=== PATIENT | male | born 1985 | race African-American/Black ===

== ENCOUNTER 2018-07-16 10:37 | Emergency (ER) | payer OTHER ==
[2018-07-16 10:52] VITALS: BP 117/82
--- NOTE | 2018-07-16 11:54 | XRAY Report ---
Reason: pain swelling. injury 2 weeks ago Procedure Date: 07/16/2018 Accession Number: [id number] / [id number] Procedure: XR - Foot 3 View LT CPT Code: FULL RESULT: EXAM: LEFT FOOT RADIOGRAPHY EXAM DATE: 07/16/2018 11:19 AM. CLINICAL HISTORY: Foot pain and swelling post injury. COMPARISON: None. TECHNIQUE: 3 views. FINDINGS: Bones: Patient is status post resection of the tip of the distal phalanx of the second digit. No acute fracture noted. Joints: Normal. No subluxations. Soft Tissues: There is mild plantar soft tissue swelling, prominence at the forefoot. IMPRESSION: 1. Status post resection of tip of distal phalanx of the second digit without acute fracture. 2. Mild forefoot plantar soft tissue swelling. RADIA
--- NOTE | 2018-07-16 12:29 | ED Physician Documentation ---
PD HPI LOWER EXT INJURY - Stated complaint Stated Complaint: L FOOT PAIN - Chief complaint Chief Complaint: Trauma Ext - History obtained from History obtained from: Patient - History of Present Illness PD HPI LOW EXT INJURY LOCATION: Left, Foot Type of injury: Twist (He was playing basketball implanted onto the left foot and felt a pop or pull on the bottom of the foot. He is continued to heat hurt with walking since that time. It seemed to be improving some but then read turned to the same level over the last few days. He had not been doing any vigorous sports. He had not taken any medicine. He presumed it was sprain and would just improve but subsequently has not) Timing - onset: How many weeks ago (2) Timing - duration: Weeks (2) Timing - details: Abrupt onset, Still present Associated symptoms: Swelling (plantar area and with pain on walking and stretching of the bottom of the foot.). No: Weakness, Numbness Similar symptoms before: Has not had sx before Recently seen: Not recently seen, Other (has not taken any meds for it) Review of Systems Constitutional: denies: Fever Nose: denies: Rhinorrhea / runny nose, Congestion Throat: denies: Sore throat Respiratory: denies: Cough Skin: denies: Rash, Lesions PD PAST MEDICAL HISTORY - Past Medical History Musculoskeletal: None - Present Medications Home Medications: Ambulatory Orders Medication Instructions Recorded Confirmed Naproxen 500 mg PO BID #20 tablet 07/16/18 - Allergies Allergies/Adverse Reactions: Allergies Allergy/AdvReac Type Severity Reaction Status Date / Time No Known Drug Allergies Allergy Verified 07/16/18 10:52 PD ED PE NORMAL - Vitals Vital signs reviewed: Yes - General General: Alert and oriented X 3, No acute distress, Well developed/nourished - Derm Derm: Normal color, Warm and dry - Extremities Extremities: Other (plantar aspect cutting machine tender decorative proximal plantar without rash, sores, redness. ) - Neuro Neuro: Alert and oriented X 3, No motor deficit, No sensory deficit, Normal speech Results - Vitals Vitals: Oxygen O2 Source Room air - Rads (name of study) foot xray Radiology: Prelim report reviewed (normal), See rad report PD MEDICAL DECISION MAKING - ED course Complexity details: considered differential (tender proximal plantar soft tissue without skin sores, redness, warmth. Achilles not tender. ), d/w patient Departure - Departure Disposition: 01 Home, Self Care Clinical Impression: Plantar fasciitis of left foot Condition: Stable Record reviewed to determine appropriate education?: Yes Instructions: ED Plantar Fasciitis Follow-Up: NAKITA Adame [Provider Group] Prescriptions: Naproxen 500 mg PO BID #20 tablet Comments: Use a firm soled shoe to reduce midfoot motion when walking. 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 This combined with some anti-inflammatories naproxen twice daily for 7-10 days should allow this to get better over the next several days to week. Follow-up with your primary if not improved over the next 4-5 days. There are other treatment options if this does not allow it to get better but this is the most common and commonly effective combination. Discharge Date/Time: 07/16/18 12:53
[2018-07-16] MEDS ORDERED: NAPROXEN 250 MG TABLET PO STA (12:42)
== END 2018-07-16 12:53 | disposition home or self-care (01) ==
LOC: ED 10:37
DX: M72.2 Plantar fascial fibromatosis (principal); X50.1XXA Overexertion from prolonged static or awkward postures, initial encounter; Y93.67 Activity, basketball
CPT/HCPCS: 73630; 99283; A9270

== ENCOUNTER 2018-11-21 08:22 | Day surgery (SDC) | payer OTHER ==
[~2018-11-21 08:22] MED LIST: CEFAZOLIN SODIUM IN 0.9 % NACL 2 GM/100 ML BAG IV ONE
[2018-11-21] MEDS ORDERED: LACTATED RINGERS 1,000 ML IV ONE (08:25)
--- NOTE | 2018-11-21 08:33 | ANESTHESIA ---
Pre-Anesthesia VS, & Labs - Diagnosis R temporal mass - Procedure Excision lesion, L temporal mass Height 5 ft 10 in Body Mass Index 25.8 Home Medications and Allergies Allergies/Adverse Reactions: Allergies Allergy/AdvReac Type Severity Reaction Status Date / Time No Known Drug Allergies Allergy Verified 07/16/18 10:52 Anes History & Medical History - Anesthetic History Anesthesia Complications: reports: No previous complications Family history of Anesthesia Complications: Denies Family history of Malignant Hyperthermia: Denies - Medical History Cardiovascular: reports: None Pulmonary: reports: None Gastrointestinal: reports: None Urinary: reports: None Musculoskeletal: reports: None Endocrine/Autoimmune: reports: None Skin: reports: None - Surgical History Eyes Ears Nose Throat (EENT): Other (jaw widening procedure. Step 1 of 2 has been completed. did not return for step 2.) Exam General: Alert, Oriented x3, Cooperative Dental: WNL, TMJ (locks if opens too far d/t mandible surgery (widening procedure)) Mouth Opening: Greater than 4 Fingerbreadths Neck Mobility: Normal Mallampati classification: I Thyromental Distance: 4-6 cm Respiratory: Lungs clear, Normal breath sounds, No respiratory distress, No accessory muscle use Cardiovascular: Regular rate Neurological: Normal speech Mental/Cognitive Status: Alert/Oriented X3, Normal for patient Cognitive Status: Within normal limits Plan Anesthesia Type: General (backup), MAC Regional Block: Per Surgeon's request for Post Op pain control Consent for Procedure(s) Verified and Reviewed: Yes Code Status: Attempt Resuscitation ASA classification: 1-Healthy patient Is this case an emergency?: No
[2018-11-21] MEDS ORDERED: LIDOCAINE 1% 50 ML MDV ONE (09:32)
[2018-11-21] MEDS: LIDOCAINE-MPF 1% 30 ML VIAL ONE ×2 (09:39→10:06)
[2018-11-21] MEDS: BUPIVACAINE 0.5%-EPI 1:200000 PF 30 ML VIAL ONE ×2 (09:40→10:06)
[2018-11-21] MEDS ORDERED: LIDOCAINE-MPF 2% 5 ML VIAL IM ONE (10:10)
[2018-11-21] MEDS ORDERED: PROPOFOL 200 MG/20 ML VIAL IVP ONE (10:10)
[2018-11-21] MEDS ORDERED: BACITRACIN OINT TOP ONE (10:31)
--- NOTE | 2018-11-21 10:34 | OPERATIVE REPORT ---
Operative Report - General Procedure Date: 11/21/18 Planned Procedure: Excision of right temporal scalp mass Pre-Op Diagnosis: Right temporal Scalp mass Procedure Performed: Excision of Right temporal scalp mass Post Op Diagnosis: Same - Procedure Note Primary Surgeon: Adelina Secondary Surgeon: Pool Anesthesia Provider: Dawn Anesthesia Technique: Local, MAC Pathology: Temporal mass to pathology in formalin Estimated Blood Loss (mL): 10 Findings: 3 cm circular fatty mass attached to the galea of the scalp. The right temporal artery was stretched over the mass Complications: None apparent - Other Other Information/Narrative: After obtaining informed consent, the patient is brought to the operating room and placed in the supine position on the operating table. Following sedation per anesthesia, the right scalp was prepped and draped in the standard surgical fashion. A timeout was held per [facility] protocol. Following infiltration with local anesthetic to create a field block, a 1.5 cm incision was created along the edge of the hairline. This was directly over the mass. This was carried down through the skin and subcutaneous tissue to reveal a smooth fatty mass below. At this point we noted the patient had become obstructed.Oral airway was placed per anesthesia and we were able to again ventilate him. This was consistent with undiagnosed sleep apnea. The temporal artery was seen to lie directly over the mass anteriorly. A single branch of the temporal artery was divided and suture ligated leaving the remainder of the temporal artery pushed anteriorly off of the mass and in anatomical position. The mass was then carefully dissected off of the underlying galea and delivered into the field.The wound was checked for hemostasis and irrigated with warm saline solution. It was closed in 2 layers with Vicryl and Monocryl suture. All sponge, needle, and instrument counts were correct at the conclusion of the case. The patient was allowed to awake from anesthesia without difficulty and taken to the postanesthesia care unit in good condition.
[2018-11-21 10:53] VITALS: BP 133/87
== END 2018-11-21 08:23 | disposition home or self-care (01) ==
LOC: SDS 08:22
PROVIDERS: ATTEND Surgery
PROC: 0JB00ZZ Excision of Scalp Subcutaneous Tissue and Fascia, Open Approach (ICD-10-PCS; principal; 2018-11-21 10:00)
DX: D17.0 Benign lipomatous neoplasm of skin and subcutaneous tissue of head, face and neck (principal); Z87.891 Personal history of nicotine dependence
CPT/HCPCS: 21012; A9270; J0690; J7120